=== PATIENT | male | born 1990 | race Caucasian/White ===

== ENCOUNTER 2018-07-12 02:42 | Emergency (ER) | payer BC, OTHER ==
[2018-07-12] MEDS ORDERED: Tamsulosin 0.4 MG Cap.ER PO ONE (03:05)
[2018-07-12] MEDS ORDERED: Ondansetron 4 MG/2 ML SDV IVPUSH ONE (03:05)
[2018-07-12] MEDS ORDERED: HYDROmorphone 1 MG/ML Syringe IVPUSH ONE (03:05)
[2018-07-12] MEDS ORDERED: Ketorolac 30 MG/ML SDV IVPUSH STA (03:05)
--- NOTE | 2018-07-12 03:10 | EDM.PDOC ---
ED HPI GENERAL MEDICAL PROBLEM - General Chief Complaint: Flank Pain Stated Complaint: SIDE PAIN Time Seen by Provider: 07/12/18 02:55 Source of Information: Reports: Patient, RN Notes Reviewed History Limitations: Reports: No Limitations - History of Present Illness INITIAL COMMENTS - FREE TEXT/NARRATIVE: The patient states that he developed sudden onset right flank pain, radiating to his right lower quadrant, around 21:30 this evening. It is burning and crampy in character. He has had nausea and vomiting. He feels better if he stands or walks, worse if he lies down. The patient states that he hasn't urinated, therefore he can't say whether or not he has had any urinary symptoms. No recent constipation or diarrhea. No recent fever. The patient states that he had similar symptoms 2 or 3 weeks ago. He states that his symptoms lasted only for about 3 hours before resolving on the room. He did not seek medical evaluation. The patient's PCP is Eloina Curiel. Right Flank Pain Score (Numeric/FACES): 8 - Related Data Allergies Allergy/AdvReac Type Severity Reaction Status Date / Time azithromycin [From Zithromax] Allergy Hives Verified 07/12/18 02:52 cefaclor [From Ceclor] Allergy Hives Verified 07/12/18 02:52 dextromethorphan Allergy Hives Verified 07/12/18 02:52 [From Supress DX] guaifenesin [From Supress DX] Allergy Hives Verified 07/12/18 02:52 Penicillins Allergy Hives Verified 07/12/18 02:52 phenylephrine Allergy Hives Verified 07/12/18 02:52 [From Supress DX] Home Meds: Home Meds Lisinopril [Zestril] 10 mg PO DAILY 07/12/18 [History] Orphenadrine [Norflex] 1 tab PO Q12H PRN #14 tab.er 07/12/18 [Rx] Sertraline [Zoloft] 25 mg PO DAILY 07/12/18 [History] Past Medical History Cardiovascular History: Reports: Hypertension Psychiatric History: Reports: Anxiety, Depression Endocrine/Metabolic History: Reports: Obesity/BMI 30+ - Past Surgical History HEENT Surgical History: Reports: Oral Surgery (wisdom teeth extraction), Tonsillectomy GI Surgical History: Reports: Appendectomy Social & Family History - Tobacco Use Smoking Status *Q: Former Smoker Years of Tobacco use: 13 Packs/Tins Daily: 2 Month/Year Tobacco Last Used: Quit early June 2018 - Alcohol Use Alcohol Use History: Yes Alcohol Use Frequency: Socially - Recreational Drug Use Recreational Drug Use: Yes Drug Use in Last 12 Months: No Recreational Drug Type: Reports: Cocaine (last snorted when 17 years old), Ecstasy (last took when 17 years old), Marijuana/Hashish (last smoked when 17 years old) - Living Situation & Occupation Living situation: Reports: Single, Alone Occupation: Employed ([employer]) ED ROS GENERAL - Review of Systems Review Of Systems: ROS reveals no pertinent complaints other than HPI. ED EXAM, RENAL/ - Physical Exam Exam: See Below Exam Limited By: No Limitations General Appearance: Alert, WD/WN, Mild Distress (appears uncomfortable) Eye Exam: Bilateral Eye: EOMI, Normal Inspection Ears: Normal External Exam, Hearing Grossly Normal Nose: Normal Inspection Throat/Mouth: Normal Inspection, Normal Lips, Normal Voice, No Airway Compromise Head: Atraumatic, Normocephalic Neck: Normal Inspection, Full Range of Motion Respiratory/Chest: No Respiratory Distress, Lungs Clear, Normal Breath Sounds, No Accessory Muscle Use Cardiovascular: Normal Peripheral Pulses, Regular Rate, Rhythm, No Gallop, No JVD, No Murmur, No Rub GI/Abdominal: Normal Bowel Sounds, Soft, No Organomegaly, No Distention, No Abnormal Bruit, No Mass, Tender (Mild, right lower quadrant, but some relief of symptoms with palpation to the right upper quadrant. Nontender elsewhere.), Other (Obese. Well-healed oblique surgical scar RLQ.) (Male) Exam: Deferred Rectal (Males) Exam: Deferred Back Exam: Normal Inspection, Full Range of Motion. No: CVA Tenderness (L), CVA Tenderness (R) Extremities: Normal Inspection, Normal Range of Motion, No Pedal Edema, Normal Capillary Refill Neurological: Alert, Oriented, Normal Cognition, No Motor/Sensory Deficits Psychiatric: Normal Affect Skin Exam: Warm, Dry, Intact, Normal Color, No Rash Course - Vital Signs Last Recorded V/S: Last Vital Signs Temp 35.3 C 07/12/18 02:53 Pulse 76 07/12/18 02:53 Resp 18 07/12/18 02:53 BP 162/82 H 07/12/18 02:53 Pulse Ox 100 07/12/18 02:53 - Orders/Labs/Meds Labs: Laboratory Tests 07/12/18 Range/Units 04:25 Urine Color Yellow (Yellow) Urine Appearance Clear (Clear) Urine pH 6.5 (5.0-8.0) Ur Specific Clarissa 1.025 (1.005-1.030) Urine Protein 1+ H (Negative) Urine Glucose (UA) Negative (Negative) Urine Ketones 4+ H (Negative) Urine Occult Blood Negative (Negative) Urine Nitrite Negative (Negative) Urine Bilirubin Negative (Negative) Urine Urobilinogen 0.2 (0.2-1.0) Ur Leukocyte Esterase Negative (Negative) Urine RBC Not seen (0-5) /hpf Urine WBC Not seen (0-5) /hpf Ur Epithelial Cells Not seen (0-5) /hpf Ur Squamous Epith Cells 0-5 (0-5) /hpf Urine Bacteria Not seen (FEW) /hpf Urine Mucus Not seen (FEW) /hpf Meds: Medications Discontinued Medications Generic Name Dose Route Start Last Admin Trade Name José Miguelq PRN Reason Stop Dose Admin Hydromorphone HCl 1 mg 07/12/18 03:05 07/12/18 03:19 Dilaudid IVPUSH 07/12/18 03:06 1 mg ONETIME ONE Administration Sodium Chloride 1,000 mls @ 150 mls/hr 07/12/18 03:15 07/12/18 03:19 Normal Saline IV 150 mls/hr ASDIRECTED KANDY Administration Ketorolac Tromethamine 30 mg 07/12/18 03:05 07/12/18 03:19 Toradol IVPUSH 07/12/18 03:06 30 mg ONETIME STA Administration Ondansetron HCl 4 mg 07/12/18 03:05 07/12/18 03:19 Zofran IVPUSH 07/12/18 03:06 4 mg ONETIME ONE Administration Orphenadrine Citrate 100 mg 07/12/18 06:31 07/12/18 06:36 Norflex PO 07/12/18 06:32 100 mg ONETIME STA Administration Tamsulosin HCl 0.4 mg 07/12/18 03:05 07/12/18 03:20 Flomax PO 07/12/18 03:06 0.4 mg ONETIME ONE Administration - Re-Assessments/Exams Free Text/Narrative Re-Assessment/Exam: 07/12/18 03:06 Clinically, the patient is likely suffering from a right-sided ureterolith. I have ordered a urinalysis and a CT scan of the abdomen and pelvis without contrast. In the meantime, the patient will receive IV fluid, Dilaudid, Flomax, Toradol, and Zofran. 07/12/18 05:39 CT of the abdomen and pelvis with oral and IV contrast is read by [facility] as "Distended gallbladder. Correlate with right upper quadrant ultrasound if indicated." 07/12/18 06:30 Test results discussed with the patient and his mother. Today's workup is unremarkable, and does not explain the cause of his symptoms. There is no evidence that he has or had a recent ureterolith. His pain may be related to a muscle spasm. I will treat with a muscle relaxant and ibuprofen. Departure - Departure Time of Disposition: 06:32 Disposition: Home, Self-Care 01 Condition: Good Clinical Impression: Muscle spasm of back - Discharge Information *PRESCRIPTION DRUG MONITORING PROGRAM REVIEWED*: Not Applicable *COPY OF PRESCRIPTION DRUG MONITORING REPORT IN PATIENT MANNY: Not Applicable Prescriptions: Orphenadrine [Norflex] 1 tab PO Q12H PRN #14 tab.er PRN Reason: Muscle Spasm Instructions: Muscle Cramps and Spasms, [id number] Referrals: Eloina Curiel MD [Primary Care Provider] - Forms: ED Department Discharge Additional Instructions: You were seen in the emergency room for sudden onset right flank pain, radiating to your lower right abdomen, along with nausea and vomiting. Workup in the ER included a urinalysis and a CT scan of your abdomen and pelvis. Your entire workup was unremarkable, and does not explain the cause of your symptoms. You do not have a urinary tract infection, and there is no evidence that you have or recently had a kidney stone. While the cause of your symptoms is not known, based on your history, physical exam, and ER test, you were most likely suffering from a muscle spasm. You have been started on the muscle relaxant Norflex. A prescription for Norflex has been sent to the [facility], located at [address] [place] [address]. Take one tablet of Norflex every 12 hours, starting this evening, , 07/12/2018, as prescribed. In addition to Norflex, you may also take [id number] ibuprofen, 2-3 tablets (400-600 mg) every 8 hours, with food, as needed for discomfort. If your symptoms persist, please follow-up with your PCP, Eloina Curiel, for further evaluation. If any other problems, please do not hesitate to return to the ER.
[2018-07-12] MEDS ORDERED: Sodium Chloride 0.9% 1,000 ML IV SCH (03:15)
[2018-07-12] MEDS ORDERED: Orphenadrine 100 MG Tab.ER PO STA (06:31)
--- NOTE | 2018-07-12 10:34 | CT ---
CT abdomen and pelvis Technique: Multiple axial sections were obtained from above the dome of the diaphragm inferiorly through the pubic symphysis. Intravenous and oral contrast was not utilized. Study has been performed as a ureteral stone protocol. Comparison: Previous CT abdomen and pelvis exam of 05/03/10. Findings: Small portion of the visualized lung bases show nothing acute. Noncontrast appearance of the liver and spleen appears within normal limits. Gallbladder is slightly prominent in size but contains no calcified gallstones or surrounding inflammatory change. Adrenal glands show no nodule. Pancreas is normal. Aorta shows no aneurysm. No retroperitoneal adenopathy or mesenteric abnormalities are seen. Small fat containing umbilical hernia is noted. No pelvic mass or adenopathy is seen. No free fluid or inflammatory change is seen. Kidneys show no abnormal calcifications. No ureteral dilatation or ureteral stone is seen. Bone window settings were reviewed which appear within normal limits for the patient's age. Impression: 1. Small fat containing umbilical hernia as an incidental note. 2. Distended gallbladder which is likely incidental, please correlate that patient has no right upper quadrant abdominal symptoms. 3. No renal calculi, ureteral dilatation or ureteral stone is seen. Diagnostic code #2 I agree with preliminary report issued by [facility] ([facility] report finalized on 07/12/18, 5:57 AM Central Time.
== END 2018-07-12 06:45 | disposition home or self-care (01) ==
LOC: JD.ED 02:42
DX: M62.830 Muscle spasm of back (principal); Z88.1 Allergy status to other antibiotic agents; Z88.0 Allergy status to penicillin; Z79.899 Other long term (current) drug therapy; Z87.891 Personal history of nicotine dependence
CPT/HCPCS: 74176; 81001; 96361; 96374; 96375; 99284; A9270; J1170; J1885; J2405; J7040

== ENCOUNTER 2018-07-21 08:36 | Emergency (ER) | payer BC ==
[2018-07-21] MEDS ORDERED: Acetaminophen/HYDROcodone 325-5 MG Tab PO ONE (09:41)
[2018-07-21] MEDS ORDERED: Ondansetron 4 MG Tab.DIS PO ONE (09:41)
--- NOTE | 2018-07-21 09:47 | EDM.PDOC ---
ED HPI GENERAL MEDICAL PROBLEM - General Chief Complaint: Abdominal Pain Stated Complaint: ABDOMINAL PAIN Time Seen by Provider: 07/21/18 09:17 Source of Information: Reports: Patient, Old Records (ED visit 07/12/2018), RN Notes Reviewed History Limitations: Reports: No Limitations - History of Present Illness INITIAL COMMENTS - FREE TEXT/NARRATIVE: The patient was seen by me in this ED on , 07/12/2018, with a complaint of sudden onset right flank pain radiating to his right lower quadrant. The pain was burning and crampy in character. He had nausea and vomiting. He felt better if he stood or walked, worse if he laid down. He reported that time that he had similar symptoms 2-3 weeks prior, but that his symptoms only lasted for about 3 hours before resolving on their own. On examination, the patient had mild right lower quadrant tenderness, but relief of symptoms with palpation to his right upper quadrant. He was nontender elsewhere. He did not have any CVA tenderness. Workup included a urinalysis, which was unremarkable. A CT scan of the abdomen and pelvis without contrast found a distended gallbladder, incidentally noted, but no evidence of a ureterolith. The patient was treated with Dilaudid, Toradol, Flomax, Zofran, and IV fluid. He was started on Norflex prior to being discharged home with a prescription for Norflex, with a presumptive diagnosis of muscle spasm of the back. The patient states that he felt better after leaving the ED, but that his pain returned later that day after he woke from a nap. He had the same pain again on 07/13/2017. He has been relatively pain-free since then, up until 01:00 this morning, when he developed pain to his entire right abdomen. His pain is made worse if he lies in the left cubitus position. He had nausea and vomiting from around 02:30 to 03:00 through until around 06:00. He states that he has had some watery diarrhea and decreased appetite over the past few days. No recent fever. He states that his last oral solid food was a ham sandwich around 17:30 to 18: 00 last evening. The patient's PCP is Eloina Curiel. Right Middle Abdomen Pain Score (Numeric/FACES): 7 - Related Data Allergies Allergy/AdvReac Type Severity Reaction Status Date / Time amoxicillin Allergy Rash Verified 07/21/18 08:56 azithromycin [From Zithromax] Allergy Hives Verified 07/12/18 02:52 cefaclor [From Ceclor] Allergy Hives Verified 07/12/18 02:52 dextromethorphan Allergy Hives Verified 07/12/18 02:52 [From Supress DX] guaifenesin [From Supress DX] Allergy Hives Verified 07/12/18 02:52 Penicillins Allergy Hives Verified 07/12/18 02:52 phenylephrine Allergy Hives Verified 07/12/18 02:52 [From Supress DX] Home Meds: Home Meds Lisinopril [Zestril] 10 mg PO DAILY 07/12/18 [History] Orphenadrine [Norflex] 1 tab PO Q12H PRN #14 tab.er 07/12/18 [Rx] Sertraline [Zoloft] 25 mg PO DAILY 07/12/18 [History] Acetaminophen/HYDROcodone [[place] 325-5 MG] 1 - 2 tab PO Q6H PRN #20 tablet 07/21 [Rx] Ondansetron [Zofran ODT] 1 tab PO Q8H PRN #10 tab.dis 07/21/18 [Rx] Past Medical History Cardiovascular History: Reports: Hypertension Psychiatric History: Reports: Anxiety, Depression Endocrine/Metabolic History: Reports: Obesity/BMI 30+ - Past Surgical History HEENT Surgical History: Reports: Oral Surgery (wisdom teeth extraction), Tonsillectomy GI Surgical History: Reports: Appendectomy Social & Family History - Tobacco Use Smoking Status *Q: Former Smoker Years of Tobacco use: 13 Packs/Tins Daily: 2 Month/Year Tobacco Last Used: Quit early June 2018 - Caffeine Use Caffeine Use: Reports: Coffee, Tea - Alcohol Use Alcohol Use History: Yes Alcohol Use Frequency: Socially - Recreational Drug Use Recreational Drug Use: Yes Drug Use in Last 12 Months: No Recreational Drug Type: Reports: Cocaine (last snorted when 17 years old), Ecstasy (last took when 17 years old), Marijuana/Hashish (last smoked when 17 years old) - Living Situation & Occupation Living situation: Reports: Single, Alone Occupation: Employed ([employer]) ED ROS GENERAL - Review of Systems Review Of Systems: ROS reveals no pertinent complaints other than HPI. ED EXAM, GI/ABD - Physical Exam Exam: See Below Exam Limited By: No Limitations General Appearance: Alert, WD/WN, Mild Distress (Appears uncomfortable) Eyes: Bilateral: Normal Appearance, EOMI Ears: Normal External Exam, Hearing Grossly Normal Nose: Normal Inspection Throat/Mouth: Normal Inspection, Normal Lips, Normal Voice, No Airway Compromise Head: Atraumatic, Normocephalic Neck: Normal Inspection, Full Range of Motion Respiratory/Chest: No Respiratory Distress, Lungs Clear, Normal Breath Sounds, No Accessory Muscle Use Cardiovascular: Normal Peripheral Pulses, Regular Rate, Rhythm, No Edema, No Gallop, No JVD, No Murmur, No Rub GI/Abdominal Exam: Soft, No Organomegaly, No Distention, No Abnormal Bruit, No Mass, Tender (Mild, far-right RUQ only. Nontender elsewhere. Boyce's sign absent.), Abnormal Bowel Sounds (diminished), Other (Obese. Well-healed oblique surgical scar RLQ.) (Male) Exam: Deferred Rectal (Males) Exam: Deferred Back Exam: Normal Inspection, Full Range of Motion. No: CVA Tenderness (L), CVA Tenderness (R) Extremities: Normal Inspection, Normal Range of Motion, No Pedal Edema, Normal Capillary Refill Neurological: Alert, Oriented, Normal Cognition, No Motor/Sensory Deficits Psychiatric: Normal Affect Skin Exam: Warm, Dry, Intact, Normal Color, No Rash Course - Vital Signs Last Recorded V/S: Last Vital Signs Temp 36.2 C 07/21/18 08:53 Pulse 58 L 07/21/18 08:53 Resp 16 07/21/18 08:53 BP 146/77 H 07/21/18 08:53 Pulse Ox 100 07/21/18 08:53 - Orders/Labs/Meds Labs: Laboratory Tests 07/21/18 07/21/18 Range/Units 10:00 10:00 WBC 13.33 H (4.23-9.07) K/mm3 RBC 5.73 (4.63-6.08) M/mm3 Hgb 16.4 (13.7-17.5) gm/L Hct 47.0 (40.1-51.0) % MCV 82.0 (79.0-92.2) fl MCH 28.6 (25.7-32.2) pg MCHC 34.9 (32.2-35.5) g/dl RDW Std Deviation 40.3 (35.1-43.9) fL Plt Count 270 (163-337) K/mm3 MPV 11.3 (9.4-12.3) fl Neutrophils % (Manual) 91 H (40-60) % Band Neutrophils % 0 (0-10) % Lymphocytes % (Manual) 4 L (20-40) % Atypical Lymphs % 0 % Monocytes % (Manual) 5 (2-10) % Eosinophils % (Manual) 0 L (0.8-7.0) % Basophils % (Manual) 0 L (0.2-1.2) Platelet Estimate Adequate RBC Morph Comment Normal Sodium 134 L (136-145) mEq/L Potassium 3.9 (3.5-5.1) mEq/L Chloride 101 (98-107) mEq/L Carbon Dioxide 19 L (21-32) mEq/L Anion Gap 17.9 H (5-15) BUN 17 (7-18) mg/dL Creatinine 1.0 (0.7-1.3) mg/dL Est Cr Clr Drug Dosing 109.98 mL/min Estimated GFR (MDRD) > 60 (>60) mL/min BUN/Creatinine Ratio 17.0 (14-18) Glucose 93 (74-106) mg/dL Calcium 9.5 (8.5-10.1) mg/dL Total Bilirubin 0.5 (0.2-1.0) mg/dL AST 19 (15-37) U/L ALT 36 (16-63) U/L Alkaline Phosphatase 73 (46-116) U/L Total Protein 8.0 (6.4-8.2) g/dl Albumin 4.2 (3.4-5.0) g/dl Globulin 3.8 gm/dL Albumin/Globulin Ratio 1.1 (1-2) Lipase 173 (73-393) U/L Meds: Medications Discontinued Medications Generic Name Dose Route Start Last Admin Trade Name Freq PRN Reason Stop Dose Admin Hydrocodone Bitart/Acetaminophen 2 tab 07/21/18 09:41 07/21/18 09:54 [place] 325-5 Mg PO 07/21/18 09:42 2 tab ONETIME ONE Administration Ondansetron HCl 4 mg 07/21/18 09:41 07/21/18 09:54 Zofran Odt PO 07/21/18 09:42 4 mg ONETIME ONE Administration - Re-Assessments/Exams Free Text/Narrative Re-Assessment/Exam: 07/21/18 09:42 While the patient's pain was initially felt in his back, his pain is now felt on the right side of his abdomen, and he has a bit of tenderness to the far right upper quadrant. The CT scan of his abdomen and pelvis on 07/12/2018 noted a distended gallbladder which was felt to be incidental, and is certainly not diagnostic of cholecystitis, however, given his continued pain, cholecystitis is now much more likely. While it is not diagnostic, believe it would be prudent to check a CBC, CMP, and lipase, just to make sure that there are no significant abnormalities. I do not see an indication to repeat the CT scan today. 07/21/18 10:47 Test results discussed with the patient. He states he is feeling somewhat better following [place]. His to be BC count is modestly elevated at 13.33, but with 0% bandemia. The remainder of his CBC, CMP, and lipase are unremarkable. I will discharge him home with prescriptions for [place] and Zofran, and have him follow-up with the surgeon at the next available appointment. Departure - Departure Time of Disposition: 09:45 Disposition: Home, Self-Care 01 Condition: Good Clinical Impression: Right upper quadrant abdominal pain of unknown etiology - Discharge Information *PRESCRIPTION DRUG MONITORING PROGRAM REVIEWED*: Not Applicable *COPY OF PRESCRIPTION DRUG MONITORING REPORT IN PATIENT MANNY: Not Applicable Prescriptions: Acetaminophen/HYDROcodone [[place] 325-5 MG] 1 - 2 tab PO Q6H PRN #20 tablet PRN Reason: Pain (Severe 7-10) Ondansetron [Zofran ODT] 1 tab PO Q8H PRN #10 tab.dis PRN Reason: Nausea/Vomiting Instructions: Abdominal Pain, Adult, [id number] Referrals: Eloina Curiel MD [Primary Care Provider] - Omega Caballero MD [Physician] - Forms: ED Department Discharge Additional Instructions: You were seen in the emergency room for continued right back and right abdominal pain. Workup in the ER included blood work, which returned unremarkable. Based on your history, physical exam, and ER tests, there is a good chance that your pain is due to a sick gallbladder (cholecystitis). As discussed, diagnosing cholecystitis can be difficult. CT scans are rarely diagnostic, and blood work, even if abnormal, is not diagnostic. Your normal blood work today does not mean that you don't have cholecystitis. You have been prescribed the narcotic pain reliever [place] and the anti-nausea medicine Zofran. Take 1 to 2 tablets of [place] up to every 6 hours, as needed for pain. If you take [place], do not drive or operate heavy machinery for 10 hours afterwards. [place] will likely cause constipation, so consider taking a stool softener. Dissolve 1 tablet of Zofran on your tongue up to every 8 hours, as needed for nausea/vomiting. As discussed, try to eat as low-fat a diet as possible. Follow-up with the Surgeon Dr. Omega Caballero at the next available appointment , for further evaluative testing that will likely include an ultrasound of your upper right abdomen and a HIDA scan. If any other problems, please do not hesitate to return to the ER.
== END 2018-07-21 11:00 | disposition home or self-care (01) ==
LOC: JD.ED 08:36
DX: R10.11 Right upper quadrant pain (principal); I10 Essential (primary) hypertension; E66.9 Obesity, unspecified; Z88.1 Allergy status to other antibiotic agents; Z87.891 Personal history of nicotine dependence; Z88.8 Allergy status to other drugs, medicaments and biological substances; Z88.0 Allergy status to penicillin
CPT/HCPCS: 36415; 80053; 83690; 85007; 85027; 99284; A9270

== ENCOUNTER 2022-03-02 08:54 | Day surgery (SDC) | payer BC ==
[~2022-03-02 08:54] MED LIST: Lactated Ringers 1,000 ML IV SCH; Lidocaine 1%/Sod Bicarbonate in NS 8.4% 1 ML Syringe IDERM PRN; Sodium Chloride 0.9% 10 ML Syringe FLUSH PRN; Sodium Chloride 0.9% 10 ML Syringe FLUSH SCH
[2022-03-02] MEDS ORDERED: Lidocaine 4% Top Soln 50 ML Bottle ONE (09:34)
[2022-03-02] MEDS ORDERED: Propofol 200 MG/20 ML SDV ONE ×8 (09:37→10:21)
[2022-03-02] MEDS ORDERED: Lidocaine 1% 2 ML ONE (09:38)
== END 2022-03-02 11:26 | disposition home or self-care (01) ==
LOC: JD.SDS 08:54
PROVIDERS: ATTEND Surgery
DX: D12.0 Benign neoplasm of cecum (principal); D12.3 Benign neoplasm of transverse colon; K57.30 Diverticulosis of large intestine without perforation or abscess without bleeding; K44.9 Diaphragmatic hernia without obstruction or gangrene; K29.70 Gastritis, unspecified, without bleeding; K21.9 Gastro-esophageal reflux disease without esophagitis; I10 Essential (primary) hypertension; F32.A Depression, unspecified; E66.9 Obesity, unspecified; E78.00 Pure hypercholesterolemia, unspecified; F41.9 Anxiety disorder, unspecified; G47.33 Obstructive sleep apnea (adult) (pediatric); Z88.1 Allergy status to other antibiotic agents; Z98.890 Other specified postprocedural states; Z90.49 Acquired absence of other specified parts of digestive tract; Z87.891 Personal history of nicotine dependence; Z88.8 Allergy status to other drugs, medicaments and biological substances; Z91.018 Allergy to other foods; Z68.42 Body mass index [BMI] 45.0-49.9, adult
CPT/HCPCS: 43239; 45380; A9270; J2704; J7120

== ENCOUNTER 2023-08-06 19:56 | Emergency (ER) | payer BC ==
[2023-08-06 20:28] LABS: BASOPHILS PERCENT AUTO 0.3 % (0.0-1.0); EOSINOPHILS PERCENT AUTO 0.1 % (0.0-6.0); HEMATOCRIT 48.4 % (42.0-52.0); HEMOGLOBIN 16.3 gm/dl (14.0-18.0); IMMATURE GRAN ABSOLUTE AUTO 0.05 K/mm3 (0.00-0.05); IMMATURE GRAN PERCENT AUTO 0.4 % (0.0-0.4); LYMPHOCYTES ABSOLUTE AUTO 0.4 K/mm3 (1.0-4.8); LYMPHOCYTES PERCENT AUTO 3.9 % (24.0-44.0); MEAN CORPUSCULAR HEMOGLOBIN 28.7 pg (28.0-32.0); MEAN CORPUSCULAR HGB CONC 33.7 g/dl (32.0-36.0); MEAN CORPUSCULAR VOLUME 85.2 fl (83.0-99.0); MEAN PLATELET VOLUME 9.9 fl (9.4-12.4); MONOCYTES ABSOLUTE AUTO 0.7 K/mm3 (0.0-0.8); MONOCYTES PERCENT AUTO 5.7 % (0.0-8.0); NEUTROPHILS ABSOLUTE AUTO 10.2 K/mm3 (1.8-7.7); NEUTROPHILS PERCENT AUTO 89.6 % (41.0-71.0); PLATELET COUNT,PLT 228 K/mm3 (150-400); RED BLOOD CELL COUNT 5.68 M/mm3 (4.52-5.90); WHITE BLOOD CELL COUNT,WBC 11.41 K/mm3 (3.9-11.3)
[2023-08-06 20:30] LABS: APPEARANCE,URINE CLEAR (Clear); BILIRUBIN,URINE NEGATIVE (Negative); COLOR,URINE YELLOW (Yellow); GLUCOSE,URINE NEGATIVE (Negative); KETONES,URINE NEGATIVE (Negative); LEUKOCYTE ESTERASE,URINE NEGATIVE (Negative); NITRITE,URINE NEGATIVE (Negative); OCCULT BLOOD,URINE 1+ (Negative); PROTEIN,URINE TRACE (Negative); UROBILINOGEN,URINE 0.2 (0.2-1.0)
[2023-08-06 20:34] LABS: BACTERIA,URINE FEW /hpf (FEW); MUCUS,URINE MANY /hpf (FEW); SQUAMOUS EPITHELIAL CELLS,UR 0-5 /hpf (0-5); WBC,URINE 0-5 /hpf (0-5)
[2023-08-06 20:49] LABS: ALBUMIN 3.8 g/dl (3.4-5.0); ANION GAP 14.6 (5-15); BILIRUBIN TOTAL 0.5 mg/dL (0.2-1.0); BUN/CREATININE RATIO 13.8 (14-18); C-REACTIVE PROTEIN 3.8 mg/dL (<0.30); CALCIUM 8.9 mg/dL (8.5-10.1); CREATININE 1.3 mg/dL (0.7-1.3); EST CRCL DRUG DOSING (CG) 83.45 mL/min; POTASSIUM,K 3.6 mEq/L (3.5-5.1); PROTEIN TOTAL,TP 7.8 g/dl (6.4-8.2)
[2023-08-06] MEDS: Ondansetron 4 MG/2 ML SDV IVPUSH ONE ×2 (20:54→23:17)
[2023-08-06] MEDS: Sodium Chloride 0.9% 1,000 ML IV STA (20:54)
[2023-08-06] MEDS: Sodium Chloride 0.9% 10 ML Syringe FLUSH PRN ×2 (20:55→21:42)
[2023-08-06] MEDS: Iopamidol 612 MG/ML 100 ML Bottle IVPUSH ONE (21:37)
[2023-08-06] MEDS: Magnesium Oxide 400 MG Tab PO ONE (23:17)
== END 2023-08-07 00:01 | disposition home or self-care (01) ==
LOC: JD.ED 19:56
DX: K52.9 Noninfective gastroenteritis and colitis, unspecified (principal); I10 Essential (primary) hypertension; E78.00 Pure hypercholesterolemia, unspecified; E66.9 Obesity, unspecified; F17.210 Nicotine dependence, cigarettes, uncomplicated; Z79.899 Other long term (current) drug therapy; Z88.0 Allergy status to penicillin; Z88.1 Allergy status to other antibiotic agents; Z88.8 Allergy status to other drugs, medicaments and biological substances; Z68.41 Body mass index [BMI] 40.0-44.9, adult
CPT/HCPCS: 36415; 74177; 80053; 81001; 83690; 83735; 85025; 86140; 87493; 93005; 96361; 96374; 96376; 99284; A9270; J2405; J3490; J7030; Q9967; 93010

== ENCOUNTER 2025-01-28 08:14 | Day surgery (SDC) | payer BC ==
[~2025-01-28 08:14] MED LIST changes: -Lactated Ringers 1,000 ML IV SCH; -Lidocaine 1%/Sod Bicarbonate in NS 8.4% 1 ML Syringe IDERM PRN
[2025-01-28] MEDS: Lactated Ringers 1,000 ML IV SCH (08:30)
[2025-01-28] MEDS ORDERED: propofoL 500 MG/50 ML 50 ML ONE (09:27)
[2025-01-28] MEDS ORDERED: Propofol 200 MG/20 ML SDV ONE (10:02)
== END 2025-01-28 10:42 | disposition home or self-care (01) ==
LOC: JD.SDS 08:14
PROVIDERS: ATTEND Surgery
DX: K31.A0 Gastric intestinal metaplasia, unspecified (principal); K31.89 Other diseases of stomach and duodenum; K64.9 Unspecified hemorrhoids; K64.4 Residual hemorrhoidal skin tags; K57.31 Diverticulosis of large intestine without perforation or abscess with bleeding; K64.8 Other hemorrhoids; I10 Essential (primary) hypertension; E66.01 Morbid (severe) obesity due to excess calories; F17.210 Nicotine dependence, cigarettes, uncomplicated; Z88.1 Allergy status to other antibiotic agents; Z88.8 Allergy status to other drugs, medicaments and biological substances; Z68.39 Body mass index [BMI] 39.0-39.9, adult; Z91.018 Allergy to other foods; Z79.899 Other long term (current) drug therapy
CPT/HCPCS: 43239; 45378; J2003; J2704; J7120; 00813